=== PATIENT | female | born 1995 | race Caucasian/White ===

== ENCOUNTER 2023-02-05 18:53 | Emergency (ER) | payer MEDICAID ==
[~2023-02-05] VITALS: Ht 180.3 cm; Wt 93.9 kg
[2023-02-05 18:58] VITALS: BP 123/87
[2023-02-05] MEDS ORDERED: BENZ200C4 PO (20:00)
[2023-02-05] MEDS ORDERED: FLONAS NS (20:00)
[2023-02-05] MEDS ORDERED: ALBU0.0912 IH (20:00)
[2023-02-05 20:10] VITALS: BP 123/87
--- NOTE | 2023-02-05 20:10 | NUR ---
FIRST CONTACT WITH PT FOR DC ONLY. PT [id number], RR EVEN AND UNLABORED. DENIES ANY PAIN AT THIS TIME.
--- NOTE | 2023-02-05 20:10 | NUR ---
Patient discharged with v/s stable. Written and verbal after care instructions given and explained. Patient alert, oriented and verbalized understanding of instructions. Ambulatory with steady gait. All questions addressed prior to discharge. ID band removed. Patient advised to follow up with PMD. Rx of PROVENTIL HFA, BENZONATATE, FLONASE given. Patient educated on indication of medication including possible reaction and side effects. Opportunity to ask questions provided and answered.
== END 2023-02-05 20:10 | disposition home or self-care (01) ==
LOC: MED 18:53
DX: J06.9 Acute upper respiratory infection, unspecified (principal); R09.82 Postnasal drip; F32.A Depression, unspecified; Z88.5 Allergy status to narcotic agent; Z88.1 Allergy status to other antibiotic agents; Z88.8 Allergy status to other drugs, medicaments and biological substances; Z79.1 Long term (current) use of non-steroidal anti-inflammatories (NSAID); Z79.899 Other long term (current) drug therapy
CPT/HCPCS: 99283